=== PATIENT | female | born 1980 ===

== ENCOUNTER 2017-03-23 12:48 | Emergency (ER) | payer MEDICAID, OTHER ==
[2017-03-23 13:17] VITALS: RESP 16; O2SAT 100
--- NOTE | 2017-03-23 13:31 | ED PDOC ---
HPI: General Adult Time Seen by Provider: 03/23/17 13:16 Chief Complaint (Nursing): ENT Problem Chief Complaint (Provider): ENT Problem History Per: Patient History/Exam Limitations: no limitations Onset/Duration Of Symptoms: Days (x4), Intermittent Episodes (since summer) Current Symptoms Are (Timing): Still Present Additional Complaint(s): 36 year old female who presents to the emergency department accompanied by her mother for an evaluation of intermittent right ear pain associated with muffled hearing and ringing ongoing since the summer but worsen in the last 4 days. Denied any fever, chills, headaches, trauma, cough, nasal congestion or throat pain. Patient stated she used over the counter ear drop but did not feel any alleviation in symptoms. PMD: none provided Past Medical History Reviewed: Historical Data, Nursing Documentation, Vital Signs Vital Signs: Last Vital Signs Temp 98.0 F 03/23/17 13:45 Pulse 66 03/23/17 13:45 Resp 16 03/23/17 13:14 BP 120/70 03/23/17 13:45 Pulse Ox 100 03/23/17 13:47 - Surgical History Surgical History: - Family History Family History: States: Unknown Family Hx - Home Medications Home Medications: Ambulatory Orders Medication Instructions Recorded Nitrofurantoin Macrocrystals 100 mg PO BID #14 cap 07/16/14 [Macrobid] Vitamins6 [ 1 tab PO DAILY #30 tab 07/16/14 Vitamins] Nitrofurantoin Macrocrystals 100 mg PO BID #14 cap 09/24/15 [Macrobid] Ofloxacin Otic 0.3% [Floxin 0.3% 10 drop AD DAILY #1 bottle 03/23/17 Otic Soln] - Allergies Allergies/Adverse Reactions: Allergies Allergy/AdvReac Type Severity Reaction Status Date / Time No Known Allergies Allergy Verified 03/23/17 13:14 Review of Systems ROS Statement: Except As Marked, All Systems Reviewed And Found Negative Constitutional: Negative for: Fever, Chills ENT: Positive for: Ear Pain (right-sided with muffled hearing and ringing). Negative for: Nose Congestion, Throat Pain, Other (trauma) Respiratory: Negative for: Cough Neurological: Negative for: Headache Physical Exam - Reviewed Nursing Documentation Reviewed: Yes Vital Signs Reviewed: Yes - Physical Exam Appears: Positive for: Well, Non-toxic, No Acute Distress Head Exam: Positive for: ATRAUMATIC, NORMAL INSPECTION, NORMOCEPHALIC Skin: Positive for: Normal Color, Warm, Dry. Negative for: Rash ENT: Positive for: TM Is/Are (cerumen impaction in right ear. left ear is WNL). Negative for: Normal ENT Inspection, Pharyngeal Erythema, Tonsillar Exudate, Other (mastoid tenderness bilaterally) Neurologic/Psych: Positive for: Alert (x3), Oriented - ECG O2 Sat by Pulse Oximetry: 100 (RA) Pulse Ox Interpretation: Normal Medical Decision Making Medical Decision Making: Initial Impression: Cerumen impaction Initial Plan: * Cerumen removal (see procedure note) ____ Time: 1300 --Upon provider reevaluation, patient is medically stable and will be discharged home with Rx for Floxin Otic solution. Counseling was provided and all questions were answered regarding diagnosis. There is agreement to discharge plan. Return if symptoms persist or worsen. Clinical Impression: Cerumen impaction Scribe Attestation: Documented by Sunita Cho, acting as a scribe for Kushal Hernández PA-C. Provider Scribe Attestation: All medical record entries made by the Scribe were at my direction and personally dictated by me. I have reviewed the chart and agree that the record accurately reflects my personal performance of the history, physical exam, medical decision making, and the department course for this patient. I have also personally directed, reviewed, and agree with the discharge instructions and disposition. Procedures - Time-Out Type of Procedure: cerumen removal Site of Procedure: right ear canal Correct Patient (with visual ID + MR# on ID Band): Yes Correct Procedure: Yes Correct Site Marked: No X-Ray Marked: No Medication Reconciliation / Bloodwork / Allergies Checked: Yes CLAIRE/Celestino: Kushal - Additional Procedures Progress: Time: 1250 --Cerumen removed from right ear canal with a curette instrument by provider without difficulty. --Patient tolerated procedure well Post cerumen removal Time: 1300 --Minimal erythema in right ear canal. --Right TM is intact with no erythema or bulging noted. --Patient reports she is feeling better with hearing returned to normal and resolution of pain. Disposition - Clinical Impression Clinical Impression: Cerumen impaction - Patient ED Disposition Is Patient to be Admitted: No Counseled Patient/Family Regarding: Diagnosis, Rx Given - Disposition Disposition: Routine/Home Disposition Time: 13:00 Condition: STABLE Prescriptions: Ofloxacin Otic 0.3% [Floxin 0.3% Otic Soln] 10 drop AD DAILY #1 bottle Instructions: Cerumen Impaction (ED) Forms: [employer] (Armenian) Print Language: KHMER
[2017-03-23 13:50] VITALS: BP 120/70; PULSE 66; TEMP 98
== END 2017-03-23 13:53 | disposition home or self-care (01) ==
LOC: H.ER 12:48
DX: H61.21 Impacted cerumen, right ear (principal)